=== PATIENT | female | born 1950 | race Caucasian/White ===

== ENCOUNTER 2016-08-05 15:41 | Emergency (ER) | payer OTHER ==
[2016-08-05 15:46] VITALS: BP 155/82; PULSE 83; RESP 16; TEMP 97.7; O2SAT 98
--- NOTE | 2016-08-05 16:35 | EDPHY ---
H & P Time Seen by Provider: 08/05/16 16:05 HPI/ROS: CHIEF COMPLAINT: Right wrist injury HISTORY OF PRESENT ILLNESS: 66-year-old female presents to the emergency department by private vehicle with isolated injury to the right wrist. The patient was at home and slipped on the [place] on her right outstretched hand. Complains of isolated pain to the right wrist. Denies hitting her head or losing consciousness. She is left-hand dominant. Denies pain in her right hand, right elbow or right shoulder. Denies symptoms in the left upper extremity. Denies neck or back pain. Denies any other injury or trauma. REVIEW OF SYSTEMS: Constitutional: No fever, no chills. Eyes: No double or blurry vision. ENT: No sore throat. Respiratory: No cough, no shortness of breath. Cardiac: No chest pain. Gastrointestinal: No abdominal pain, vomiting or diarrhea. Genitourinary: No dysuria. Musculoskeletal: No neck or back pain. Skin: No rashes. Neurological: No headache. Past Medical/Surgical History: Social History: and lives in [place] Smoking Status: Former smoker Physical Exam: General Appearance: Alert, no distress. No visible signs of trauma to her head. She is mentating normally and answering questions appropriately. Eyes: Pupils equal and round. Extraocular motions are all intact. ENT: Mouth: Mucous membranes moist. Respiratory: No wheezing, rhonchi, or rales, lungs are clear to auscultation. Cardiovascular: Regular rate and rhythm. Gastrointestinal: Abdomen is soft and nontender, no masses, no rebound or guarding, bowel sounds normal. Neurological: Alert and oriented x 3, cranial nerves II through XII grossly intact Skin: Warm and dry, no rashes. Musculoskeletal: Nontender to palpate along the cervical, thoracic or lumbar spine. Neck is supple. Extremities: Obvious deformity noted to the right wrist. Tender to palpate over the distal radius. Unable to fully supinate, flex or extend her wrist without severe pain. Normal sensation to light touch with normal 2 point discrimination. Strong radial pulse at the right wrist. Left upper extremity is uninjured. Lower extremities bilaterally are uninjured. Psychiatric: Patient is oriented X 3, there is no agitation. Constitutional: Initial Vital Signs Temperature (C) 36.5 C 08/05/16 15:44 Heart Rate 83 08/05/16 15:44 Respiratory Rate 16 08/05/16 15:44 Blood Pressure 155/82 H 08/05/16 15:44 O2 Sat (%) 98 08/05/16 15:44 Allergies/Adverse Reactions: No Known Allergies Allergy (Unverified 08/05/16 15:47) Home Medications: Medication Instructions Recorded oxyCODONE/APAP 5/325 [Percocet 1 - 2 tab PO Q4-6PRN PRN #15 tab 08/05/16 5/325] Medical Decision Making - Diagnostics Imaging: X-rays of the right wrist reveal comminuted, intra-articular displaced, angulated right distal radius fracture. This is reviewed by myself the PAC system. Radiology interpretation to follow. Procedures: Patient was placed in a volar Ortho Glass splint and examined post application in good placement with normal [employer]. ED Course/Re-evaluation: 66-year-old female presents to the emergency department with right wrist injury. X-rays reveal comminuted, displaced, angulated distal radius fracture. I spoke with the on-call hand surgeon, Dr. Lico Olea, who felt that the fracture was very unstable and would likely not hold with reduction. He recommended surgical repair. He recommended placing the patient in a volar splint and he will see her in follow-up tomorrow. This was discussed with the patient verbalized understanding and agreed. She was encouraged to ice and elevate the area to help minimize swelling. She was instructed to return if he developed numbness or tingling in her fingers, increasing pain or any other concerns. Differential Diagnosis: Including but not limited to fracture, dislocation, contusion, sprain Departure - Departure Disposition: Home, Routine, Self-Care Clinical Impression: Right wrist fracture Qualifiers: Qualifier Code: (S62.101A) Fracture of unspecified carpal bone, right wrist, initial encounter for closed fracture Condition: Good Instructions: Wrist Fracture in Adults (ED) Additional Instructions: Keep splint on and keep it dry until follow-up with orthopedist tomorrow. Call Dr. Rodriguez's registered dental assistant at their direct number [phone] to arrange for a follow-up appointment to be seen tomorrow. Percocet for severe pain as directed. Referrals: Lico Olea MD [Medical Doctor] - As per Instructions (Call [phone] to arrange for a follow-up appointment to be seen tomorrow.) Prescriptions: oxyCODONE/APAP /325 [Percocet 5/325] 1 - 2 tab PO Q4-6PRN PRN #15 tab PRN Reason: For Moderate To Severe Pain
--- NOTE | 2016-08-05 17:03 | DX ---
Wrist Minimum of 3 Views Right History: Trauma. Pain. Comparison exam: None available. Findings: Comminuted distal right radial fracture is present, with dorsal displacement of fracture fr agments and dorsal angulation of the distal radial articular surface. Fracture extends into the dista l radial articular surface, and there is impaction and foreshortening of the distal radius, with seco ndary ulna plus deformity. No carpal fracture identified. Degenerative changes are incidentally noted at the articulation of sca phoid with trapezoid and trapezium and at the first CMC joint. Impression: Comminuted impacted distal right radial fracture with dorsal angulation of articular lucia face, and intra-articular extension.
== END 2016-08-05 18:18 | disposition home or self-care (01) ==
DX: S52.501A Unspecified fracture of the lower end of right radius, initial encounter for closed fracture (principal); Z87.891 Personal history of nicotine dependence; W00.0XXA Fall on same level due to ice and snow, initial encounter; Y92.009 Unspecified place in unspecified non-institutional (private) residence as the place of occurrence of the external cause
CPT/HCPCS: A4565